=== PATIENT | female | born 1985 | race Hispanic/Latino ===

== ENCOUNTER 2019-01-30 04:16 | Emergency (ER) | payer BC, OTHER ==
[2019-01-30] MEDS ORDERED: TETANUS & DIPHTHERIA TOX,ADULT 0.5 ML VIAL ONE (05:12)
[2019-01-30] MEDS ORDERED: HYDROCODONE/APAP 10/325 TAB ONE (05:12)
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
[2019-01-30 05:59] VITALS: BP 118/80; TEMP 98.8; O2SAT 99
== END 2019-01-30 05:54 | disposition home or self-care (01) ==
LOC: ER 04:16
DX: T21.21XA Burn of second degree of chest wall, initial encounter (principal); T23.201A Burn of second degree of right hand, unspecified site, initial encounter; T22.20XA Burn of second degree of shoulder and upper limb, except wrist and hand, unspecified site, initial encounter; F17.210 Nicotine dependence, cigarettes, uncomplicated; Z23 Encounter for immunization; Z88.2 Allergy status to sulfonamides; Z88.8 Allergy status to other drugs, medicaments and biological substances
CPT/HCPCS: 90471; 90714; 99283